=== PATIENT | male | born 1965 | race Hispanic/Latino ===

== ENCOUNTER 2017-04-15 16:07 | Inpatient (IN) | payer BC ==
[2017-04-15 16:39] VITALS: BMI 41.0
[2017-04-15] MEDS ORDERED: FLU VACC QS2017-18 36 mo. & older 0.5 ML SYRINGE IM ONE (17:00)
[2017-04-15] MEDS ORDERED: Acetaminophen 325 MG TAB PO PRN (17:36)
[2017-04-15] MEDS ORDERED: HumaLOG 300 UNITS/3 ML VIAL SC PRN ×2 (17:36)
[2017-04-15] MEDS ORDERED: Ondansetron ODT 4 MG TAB PO PRN (17:36)
[2017-04-15] MEDS ORDERED: HYDROcodone/Acetaminophen 10/325 mg Tablet PO PRN (17:36)
[2017-04-15] MEDS ORDERED: HYDROcodone/Acetaminophen 5/325 mg Tablet PO PRN (17:36)
[2017-04-15] MEDS ORDERED: Milk Of Magnesia 30 ML UDCUP PO PRN (17:36)
[2017-04-15] MEDS ORDERED: Calcium Carbonate 500 MG ChewTAB PO PRN (17:36)
[2017-04-15] MEDS ORDERED: Dextrose 50% Abboject 50 ML SYRINGE SLOW IVP PRN (17:36)
[2017-04-15] MEDS ORDERED: Bisacodyl 10 MG SUPP PR PRN (17:36)
[2017-04-15] MEDS ORDERED: Dextrose 5% in Water 1,000 ML IV PRN (17:36)
[2017-04-15] MEDS ORDERED: Sodium Chloride 0.9% 500 ML IV SCH (18:00)
[2017-04-15 18:49] LABS: ALT (SGPT) 19 U/L (8-55); AST (SGOT) 14 U/L (5-34); Albumin 3.8 g/dL (3.5-5.0); Alkaline Phosphatase 107 U/L (40-150); Anion Gap 14 mmol/L (10-20); BUN (Urea Nitrogen) 23 mg/dL (8.4-25.7); Bilirubin, Total 0.4 mg/dL (0.2-1.2); Calc. Creatinine Clearance 141 mL/min (70-130); Calcium 9.7 mg/dL (7.8-10.44); Carbon Dioxide 26 mmol/L (22-29); Chloride 103 mmol/L (98-107); Estimated GFR-MDRD 76; Globulin 4.5 g/dL (2.4-3.5); Glucose 124 mg/dL (70-105); Potassium 4.4 mmol/L (3.5-5.1); Protein, Total 8.3 g/dL (6.0-8.3); Sodium 139 mmol/L (136-145)
[2017-04-15 19:01] LABS: #Basophils 0.1 thou/uL (0.0-0.2); #Eosinphils 0.1 thou/uL (0.0-0.7); #Lymphocytes 2.6 thou/uL (1.20-3.40); #Monocytes 0.7 thou/uL (0.11-0.59); #Neutrophils 4.2 thou/uL (1.40-6.50); %Basophils 0.7 % (0.0-1.0); %Eosinophils 1.9 % (0.0-10.0); %Lymphocytes 33.6 % (21.0-51.0); %Monocytes 9.4 % (0.0-10.0); %Neutrophils 54.5 % (42.0-75.0); Eosinophils 3 % (0-10); Hemoglobin 14.2 g/dL (14.0-18.0); Lymphocytes 24 % (21-51); MDiff Complete? YES; Mean Corpuscular HGB CONC 34.2 g/dL (32.0-36.0); Mean Corpuscular Hemoglobin 30.9 pg (27.0-31.0); Mean Corpuscular Volume 90.3 fl (80.0-94.0); Mean Platelet Volume 6.6 fL (7.4-10.4); Monocytes 12 % (0-10); Neutrophil 61 % (42-75); Platelet Count 307 thou/uL (130-400); RBC Distribution Width 11.2 % (11.5-14.5); Red Blood Cell (RBC) Count 4.61 mill/uL (4.70-6.10); White Blood Cell (WBC) Count 7.7 thou/uL (4.8-10.8)
[2017-04-15] MEDS ORDERED: Vancomycin HCl 1.5 GM in Sodium Chloride 0.9% 250 ML 300 ML IVPB SCH (20:00)
[2017-04-15] MEDS: Vancomycin HCl 750 MG in Sodium Chloride 0.9% 250 ML 250 ML IVPB SCH ×2 (20:58→22:36)
[2017-04-15] MEDS: Famotidine 20 MG TAB PO SCH (20:59)
[2017-04-15] MEDS: Atorvastatin Calcium 10 MG TAB PO SCH (20:59)
[2017-04-15] MEDS: Docusate 100 MG CAP PO SCH (20:59)
[2017-04-15] MEDS ORDERED: Meropenem 500 MG in Sodium Chloride 0.9% 100 ML IVPB SCH (22:00)
--- NOTE | 2017-04-15 22:33 | RAD ---
LEFT FOOT THREE VIEWS: 04/15/17 There is considerable soft tissue swelling throughout the foot and forefoot. The tarsal relations are abnormal. There is fragmentation of the navicular and bones around it and it appears to be subluxed or displaced. The relationship between the cuboid and the remaining metatarsals is abnormal. This may constitute Charcot's joints. Regarding the possibility of osteomyelitis, I do not see any focal area of bony destruction. Other studies would be more sensitive at picking up such, however. A prominent calcaneal spur is present. IMPRESSION: 1. No definite findings of osteomyelitis, but this is a late finding on plain radiography. 2. Abnormal tarsal relationship with probable subluxation or displacement of the tarsal navicula r as well as fragmentation of it. There are several bony fragments in the general region, but this is probably chronic. POS: HOME
[2017-04-16] MEDS: Meropenem 500 MG VIAL SLOW IVP SCH ×3 (00:08→15:01)
[2017-04-16] MEDS: Sterile Water 10 ML VIAL FS SCH ×3 (00:09→15:01)
[2017-04-16 05:32] LABS: Anion Gap 14 mmol/L (10-20); BUN (Urea Nitrogen) 18 mg/dL (8.4-25.7); Calc. Creatinine Clearance 173 mL/min (70-130); Calcium 9.1 mg/dL (7.8-10.44); Carbon Dioxide 22 mmol/L (22-29); Chloride 105 mmol/L (98-107); Estimated GFR-MDRD Greater than 90; Glucose 130 mg/dL (70-105); Potassium 4.4 mmol/L (3.5-5.1); Sodium 137 mmol/L (136-145)
[2017-04-16 05:49] LABS: #Basophils 0.1 thou/uL (0.0-0.2); #Eosinphils 0.2 thou/uL (0.0-0.7); #Lymphocytes 2.4 thou/uL (1.20-3.40); #Monocytes 0.6 thou/uL (0.11-0.59); #Neutrophils 2.4 thou/uL (1.40-6.50); %Eosinophils 2.8 % (0.0-10.0); %Lymphocytes 43.3 % (21.0-51.0); %Neutrophils 42.9 % (42.0-75.0); Eosinophils 2 % (0-10); Lymphocytes 34 % (21-51); MDiff Complete? YES; Mean Corpuscular HGB CONC 34.8 g/dL (32.0-36.0); Mean Corpuscular Hemoglobin 30.8 pg (27.0-31.0); Mean Corpuscular Volume 88.5 fl (80.0-94.0); Mean Platelet Volume 6.5 fL (7.4-10.4); Monocytes 9 % (0-10); Neutrophil 54 % (42-75); PLT Morphology Comment Appears Adequate; Platelet Count 259 thou/uL (130-400); RBC Distribution Width 10.7 % (11.5-14.5); RBC Morphology Normal; Red Blood Cell (RBC) Count 4.21 mill/uL (4.70-6.10); Small Platelets SLIGHT; White Blood Cell (WBC) Count 5.6 thou/uL (4.8-10.8)
[2017-04-16] MEDS ORDERED: EXENATIDE 10 MCG SC SCH (07:30)
[2017-04-16] MEDS: Lisinopril 5 MG TAB PO SCH (09:53)
[2017-04-16] MEDS: Enoxaparin Sodium 40 MG/0.4 ML SYRINGE SC SCH (09:54)
[2017-04-16] MEDS: Famotidine 20 MG TAB PO SCH ×2 (09:54→21:34)
[2017-04-16] MEDS: Aspirin 81 mg Enteric Coated Tablet PO SCH (09:54)
[2017-04-16] MEDS: Docusate 100 MG CAP PO SCH ×2 (09:55→21:34)
[2017-04-16] MEDS: Vancomycin HCl 750 MG in Sodium Chloride 0.9% 250 ML 250 ML IVPB SCH ×4 (09:56→22:53)
[2017-04-16] MEDS: BYETTA 10 MCG SC SCH (17:23)
[2017-04-16] MEDS: Atorvastatin Calcium 10 MG TAB PO SCH (21:34)
[2017-04-17] MEDS: Meropenem 500 MG VIAL SLOW IVP SCH ×4 (00:31→23:47)
[2017-04-17] MEDS: Sterile Water 10 ML VIAL FS SCH ×4 (00:31→23:47)
[2017-04-17 07:25] LABS: Vancomycin, Trough 16.2 ug/mL
[2017-04-17] MEDS: Vancomycin HCl 750 MG in Sodium Chloride 0.9% 250 ML 250 ML IVPB SCH ×4 (08:06→22:14)
[2017-04-17] MEDS: Famotidine 20 MG TAB PO SCH ×2 (08:08→21:06)
[2017-04-17] MEDS: Aspirin 81 mg Enteric Coated Tablet PO SCH (08:08)
[2017-04-17] MEDS: Lisinopril 5 MG TAB PO SCH (08:08)
[2017-04-17] MEDS: Docusate 100 MG CAP PO SCH ×2 (08:08→20:43)
[2017-04-17] MEDS: Enoxaparin Sodium 40 MG/0.4 ML SYRINGE SC SCH (08:09)
[2017-04-17] MEDS: BYETTA 10 MCG SC SCH ×2 (08:14→17:20)
[2017-04-17] MEDS: Atorvastatin Calcium 10 MG TAB PO SCH (20:43)
[2017-04-18 05:43] LABS: Platelet Count 243 thou/uL (130-400)
[2017-04-18 05:47] LABS: Calc. Creatinine Clearance 172 mL/min (70-130); Estimated GFR-MDRD Greater than 90
[2017-04-18] MEDS: Meropenem 500 MG VIAL SLOW IVP SCH ×3 (06:25→23:15)
[2017-04-18] MEDS: Sterile Water 10 ML VIAL FS SCH ×3 (06:25→23:15)
[2017-04-18] MEDS: Vancomycin HCl 750 MG in Sodium Chloride 0.9% 250 ML 250 ML IVPB SCH ×4 (08:45→23:26)
[2017-04-18] MEDS: Aspirin 81 mg Enteric Coated Tablet PO SCH (08:48)
[2017-04-18] MEDS: Lisinopril 5 MG TAB PO SCH (08:48)
[2017-04-18] MEDS: Docusate 100 MG CAP PO SCH ×2 (08:48→21:50)
[2017-04-18] MEDS: Famotidine 20 MG TAB PO SCH ×2 (08:50→23:15)
[2017-04-18] MEDS: Enoxaparin Sodium 40 MG/0.4 ML SYRINGE SC SCH (08:50)
[2017-04-18] MEDS: BYETTA 10 MCG SC SCH ×2 (08:52→17:06)
[2017-04-18] MEDS ORDERED: Atorvastatin Calcium 40 MG TAB ONE (21:54)
[2017-04-18] MEDS: Atorvastatin Calcium 10 MG TAB PO SCH (23:16)
[2017-04-19] MEDS: Enoxaparin Sodium 40 MG/0.4 ML SYRINGE SC SCH (05:55)
[2017-04-19] MEDS: Meropenem 500 MG VIAL SLOW IVP SCH ×3 (05:55→23:49)
[2017-04-19] MEDS: Sterile Water 10 ML VIAL FS SCH ×3 (05:55→23:49)
[2017-04-19] MEDS: Docusate 100 MG CAP PO SCH ×2 (05:56→20:55)
[2017-04-19] MEDS: Aspirin 81 mg Enteric Coated Tablet PO SCH (05:57)
[2017-04-19] MEDS: Famotidine 20 MG TAB PO SCH ×2 (05:58→20:56)
[2017-04-19] MEDS: Lisinopril 5 MG TAB PO SCH (05:58)
[2017-04-19] MEDS: BYETTA 10 MCG SC SCH ×2 (06:00→17:03)
[2017-04-19 06:32] LABS: Vancomycin, Trough 19.2 ug/mL
[2017-04-19] MEDS: Vancomycin HCl 750 MG in Sodium Chloride 0.9% 250 ML 250 ML IVPB SCH ×4 (10:37→22:23)
[2017-04-19] MEDS: Atorvastatin Calcium 10 MG TAB PO SCH (20:56)
[2017-04-20 05:23] LABS: Hemoglobin 12.7 g/dL (14.0-18.0); Platelet Count 234 thou/uL (130-400)
[2017-04-20 05:26] LABS: Calc. Creatinine Clearance 170 mL/min (70-130); Estimated GFR-MDRD Greater than 90
[2017-04-20] MEDS: Meropenem 500 MG VIAL SLOW IVP SCH ×2 (06:16→14:41)
[2017-04-20] MEDS: Sterile Water 10 ML VIAL FS SCH ×2 (06:16→14:41)
[2017-04-20 07:08] VITALS: TEMP 98.3
[2017-04-20] MEDS: Enoxaparin Sodium 40 MG/0.4 ML SYRINGE SC SCH (08:34)
[2017-04-20] MEDS: Lisinopril 5 MG TAB PO SCH (08:35)
[2017-04-20] MEDS: Famotidine 20 MG TAB PO SCH (08:35)
[2017-04-20] MEDS: Aspirin 81 mg Enteric Coated Tablet PO SCH (08:35)
[2017-04-20] MEDS: Docusate 100 MG CAP PO SCH (08:36)
[2017-04-20] MEDS: Vancomycin HCl 750 MG in Sodium Chloride 0.9% 250 ML 250 ML IVPB SCH ×2 (08:37→08:44)
[2017-04-20] MEDS: BYETTA 10 MCG SC SCH (08:39)
[2017-04-20 08:45] VITALS: BP 123/76
--- NOTE | 2017-04-28 09:09 | DIS ---
DATE OF ADMISSION: 04/15/2017 DATE OF DISCHARGE: 04/20/2017 ADMISSION DIAGNOSES: 1. Left lower extremity cellulitis. 2. Type 2 diabetes. DISCHARGE DIAGNOSES: 1. Left lower extremity cellulitis. 2. Type 2 diabetes. 3. Charcot joint, left foot. ATTENDING PHYSICIAN: Dr. Liz Galeas PROCEDURES: 1. X-ray of the foot from the date of admission on the left showed no definite findings of osteomyelitis, but this is late finding on plain radiography. Abnormal tarsal relationship with probable subluxation or displacement of the tarsal navicular as well as fragmentation of it. There are several bony fragments in the general region, but this is probably chronic. 2. 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 In the absence of a cutaneous wound, signal changes are unlikely to reflect osteomyelitis. Similarly signal changes involving the soft tissues of the mid foot also are likely on the basis of diabetic neuro arthropathy. There is no focal fluid collection to suggest an abscess. HISTORY AND PHYSICAL EXAMINATION: Please see clinic note and H&P update from the date of admission. HOSPITAL COURSE: The patient is a 52-year-old male who had been experiencing soft tissue swelling of the left lower extremity for several weeks prior to admission. He was evaluated at [facility] and venous doppler was performed which ruled out DVT. He subsequently was treated with oral antibiotics that was geared toward status post amputation of the second digit of his RIGHT foot for osteomyelitis. He completed these in the outpatient setting. However, the swelling in the left lower extremity including the foot persisted. He presented to my office and we attempted edema management with furosemide. This showed no real improvement and the patient was started on Keflex to cover for a left lower extremity cellulitis given that the patient had redness and warmth to the foot. He followed up in the clinic shortly for a recheck and it was noted that he was then hypotensive and was still on his furosemide. Also, there have been progression of the erythema to the proximal calf and the recommendation was made for the patient to be admitted for IV antibiotics and to exclude osteo in the left lower extremity. He was placed on antibiotics of meropenem and vancomycin. X-ray did not show osteomyelitis, but could not exclude as a late finding. The patient was set up for MRI of the left foot to exclude osteomyelitis. Osteomyelitis was less likely based on the findings, but neuro arthritis was noted/Charcot joint. The patient's erythema and warmth improved throughout his hospital admission. He had some minimal improvement of the edema. He has had a normal white count and has been afebrile throughout his admission. The pain that was present on admission in the foot has diminished and he is no longer complaining of pain at the time of his discharge. He will be sent home today on oral Keflex and Bactrim. He will follow up with me in approximately 7 days and will set him up with Orthopedic Surgery for further evaluation. 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 The patient has type 2 diabetes. The patient was placed on Accu-Cheks before meals and at bedtime with corrective insulin algorithm. His Accu-Cheks remained well controlled throughout his hospitalization and he has been stressed the importance of tight diabetic control and compliance with medications at his discharge. DISPOSITION: Discharged home. CONDITION: Good. MEDICATIONS: 1. Keflex 500 mg p.o. t.i.d. 2. Bactrim DS 1 p.o. b.i.d. 3. Lisinopril 10 mg p.o. daily. 4. Atorvastatin 10 mg p.o. at bedtime. 5. Glipizide XL 5 mg p.o. b.i.d. 6. Pioglitazone 30 2.5 mg p.o. daily. 7. Aspirin 81 mg p.o. daily. 8. Byetta 10 mcg subcu twice daily. FOLLOWUP: Follow up will be with me in approximately 7 days. ADDITIONAL INSTRUCTIONS: The patient is to elevate the left lower extremity above the level of heart and avoid dependency for more than 2 hours at a time to help resolve residual edema. GILD
== END 2017-04-20 15:31 | disposition home or self-care (01) | DRG 603 ==
LOC: BURMED 16:07
PROVIDERS: ADMIT Family Medicine; ATTEND Family Medicine
DX: L03.116 Cellulitis of left lower limb (principal); A52.16 Charcot's arthropathy (tabetic); E11.9 Type 2 diabetes mellitus without complications; I10 Essential (primary) hypertension; Z89.421 Acquired absence of other right toe(s); E78.2 Mixed hyperlipidemia; E11.319 Type 2 diabetes mellitus with unspecified diabetic retinopathy without macular edema
CPT/HCPCS: 36415; 36416; 80048; 80053; 80202; 82565; 83605; 83880; 85014; 85018; 85025; 85049; 87040; 90471; 90682; A4216; G0008; J1650; J2185; J3370; J7050; Q2036

== ENCOUNTER 2019-03-06 08:49 | Outpatient (CLI) | payer BC ==
--- NOTE | 2019-03-06 15:05 | ULT ---
Arterial duplex sonogram bilateral lower extremity HISTORY: R09.89. Vascular disease. Leg pain. FINDINGS: Good color and spectral Doppler flow with triphasic waveform at each common femoral and lizzeth p femoral, femoral, popliteal, dorsalis pedis, and posterior tibial artery. Biphasic flow within the anterior tibial artery. No abnormally elevated peak systolic velocities detected. IMPRESSION: Normal exam.
== END 2019-03-06 08:50 | disposition home or self-care (01) ==
LOC: BURULT 08:49
PROVIDERS: ATTEND Family Medicine
DX: R09.89 Other specified symptoms and signs involving the circulatory and respiratory systems (principal)
CPT/HCPCS: 93925

== ENCOUNTER 2022-02-01 15:15 | Emergency (ER) | payer MEDICARE ==
[2022-02-01 15:48] LABS: #Basophils 0.1 thou/uL (0.0-0.2); #Eosinphils 0.1 thou/uL (0.0-0.7); #Lymphocytes 3.7 thou/uL (1.20-3.40); #Neutrophils 2.9 thou/uL (1.40-6.50); %Basophils 0.7 % (0.0-1.0); %Eosinophils 1.4 % (0.0-10.0); %Lymphocytes 47.4 % (21.0-51.0); %Monocytes 12.8 % (0.0-10.0); %Neutrophils 37.8 % (42.0-75.0); Mean Corpuscular HGB CONC 32.2 g/dL (32.0-36.0); Mean Corpuscular Hemoglobin 31.8 pg (27.0-31.0); Mean Corpuscular Volume 98.6 fl (78.0-98.0); Mean Platelet Volume 8.5 fL (7.4-10.4); Platelet Count 195 10x3/uL (130-400); RBC Distribution Width 12.3 % (11.5-14.5); Red Blood Cell (RBC) Count 4.41 mill/uL (4.70-6.10); White Blood Cell (WBC) Count 7.8 10x3/uL (4.8-10.8)
[2022-02-01 16:01] LABS: PTT 32.1 sec (22.9-36.1)
[2022-02-01 16:04] LABS: ALT (SGPT) 37 U/L (8-55); AST (SGOT) 23 U/L (5-34); Albumin 3.9 g/dL (3.5-5.0); Alcohol 184 mg/dL (Less than 10); Alkaline Phosphatase 70 U/L (40-110); Anion Gap 19 mmol/L (10-20); BUN (Urea Nitrogen) 15 mg/dL (8.4-25.7); Bilirubin, Total 0.3 mg/dL (0.2-1.2); Calc. Creatinine Clearance 0 mL/min (70-130); Calcium 8.8 mg/dL (7.8-10.44); Carbon Dioxide 22 mmol/L (22-29); Chloride 96 mmol/L (98-107); Estimated GFR 73; Glucose 263 mg/dL (70-105); Potassium 4.1 mmol/L (3.5-5.1); Protein, Total 6.9 g/dL (6.0-8.3); Sodium 133 mmol/L (136-145)
[2022-02-01] MEDS ORDERED: Acetaminophen 500 MG TAB ONE (16:26)
[2022-02-01] MEDS ORDERED: Ketorolac Tromethamine 30 MG/ML VIAL ONE (19:11)
== END 2022-02-01 19:35 | disposition short-term general hospital (02) ==
LOC: BURERS 15:15
DX: S01.511A Laceration without foreign body of lip, initial encounter (principal); F10.129 Alcohol abuse with intoxication, unspecified; I10 Essential (primary) hypertension; E11.9 Type 2 diabetes mellitus without complications; E78.5 Hyperlipidemia, unspecified; W22.8XXA Striking against or struck by other objects, initial encounter; Y92.009 Unspecified place in unspecified non-institutional (private) residence as the place of occurrence of the external cause
CPT/HCPCS: 70450; 70486; 71045; 72125; 80053; 80307; 85025; 85610; 85730; 96374; J1885